=== PATIENT | female | born 1945 | race Caucasian/White ===

== ENCOUNTER 2016-07-20 14:53 | Emergency (ER) | payer MEDICARE, BC | END 2016-07-20 17:32 | disposition home or self-care (01) | LOC: ER 14:53 | DX: J44.1 Chronic obstructive pulmonary disease with (acute) exacerbation (principal); T17.990A Other foreign object in respiratory tract, part unspecified in causing asphyxiation, initial encounter; J45.909 Unspecified asthma, uncomplicated; F41.9 Anxiety disorder, unspecified; I10 Essential (primary) hypertension; E78.5 Hyperlipidemia, unspecified; F17.210 Nicotine dependence, cigarettes, uncomplicated; Z95.5 Presence of coronary angioplasty implant and graft; Z79.82 Long term (current) use of aspirin; Z79.899 Other long term (current) drug therapy | CPT/HCPCS: 36415; 96374; Q9967 ==